=== PATIENT | female | born 1960 | race Two or more races ===

== ENCOUNTER → 2017-03-06 | Outpatient (CLI) | payer OTHER ==
[2016-03-16 20:26] VITALS: BP 148/73
--- NOTE | 2017-03-08 15:32 | MG ---
HISTORY: SCREENING . 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 Comparison: Multiple mammograms dating back to June 22, 2013. FINDINGS: Bilateral CC and MLO projections of the right and left breast were obtained. An additional XCCL view of the left breast was obtained. Heterogeneously dense fibroglandular tissue is seen to be present . Architectural distortion is seen of the left upper outer breast consistent with prior lumpectomy. No suspicious microcalcifications. No new masses.. No skin thickening or nipple retraction is appr eciated. No pathological lymphadenopathy can be identified. Benign-appearing calcifications scatte red throughout the right and left breasts are observed. IMPRESSION: NO RADIOGRAPHIC EVIDENCE OF MALIGNANCY. ACR CATEGORY: 2 - benign findings. FOLLOW-UP EXAM 1 YEAR. Diagnostic CAD was utilized and reviewed. * 0 (ZERO) - ASSESSMENT INCOMPLETE; ADDITIONAL IMAGING IS NEEDED. * 1/ (ONE) - NEGATIVE. * 2/II (TWO) - BENIGN FINDINGS. * 3/III (THREE) - PROBABLY BENIGN FINDING; SHORT INTERVAL FOLLOW-UP SUGGESTED. * 4/IV (FOUR) - SUSPICIOUS ABNORMALITY; BIOPSY SHOULD BE CONSIDERED. * 5/V - HIGHLY SUSPICIOUS OF MALIGNANCY; BIOPSY SHOULD BE PERFORMED. A NEGATIVE X-RAY REPORT SHOULD NOT DELAY BIOPSY IF A DOMINANT OR CLINICALLY SUSPICIOUS MASS IS PRESENT; 4 TO 8 PERCENT OF CANCERS ARE NOT IDENTIFIED BY X-RAY. A NEG ATIVE REPORT MAY REINFORCE THE CLINICAL IMPRESSION. ADENOSIS AND DENSE BREASTS MAY OBSCURE AN UNDER LYING NEOPLASM. Reported By:
== END ==
LOC: RAD 16:02
PROVIDERS: ATTEND Internal Medicine
DX: Z12.31 Encounter for screening mammogram for malignant neoplasm of breast (principal)
CPT/HCPCS: 77067

== ENCOUNTER 2017-04-04 17:14 | Emergency (ER) | payer SELFPAY ==
[2017-04-04 17:19] VITALS: BP 112/64; BMI 22.3
--- NOTE | 2017-04-04 19:36 | DR.HYPOGLY ---
HPI - Time Seen Time seen: 19:15 - PCP Primary Care Physician: LYN VARGAS - HPI Comment HPI Comment: Pt c/o 350 BS at home. She called her PCP, who trold her to go to the ER and have it checked out. Upon presentation to the ER , the patient's FSBS was 215. - Complaint Chief Complaint Doctors Comments: "Elevated BS" Chief Complaint:: PTS FAMILY STATES " HER SUGAR WAS HIGH AND WE CALLED HER DOCTOR AND SHE TOLD US TO COME TO THE HOSPITAL".. Self Treatment fo Chief Complaint: PT IS HAVING SOME DIZZINESS - Nurses notes reviewed Nurses Notes Review: Yes - Source History Provided: Patient, Family Member - Mode of Arrival Mode of Arrival: Ambulatory - Timing Onset of Chief Complaint: 04/04/17 PMH - PMH Past Medical History: No Past Medical History: Hypertension Past Surgical History: Yes Surgical History: Mastectomy Past Surgical History Comment: CANCEROUS CELLS LUMPECTOMY FROM LEFT - Family History History of Family Medical Conditions: No - Social History Does patient currently use any type of tobacco product: No Have you used tobacco products in the last 12 months: No Type of Tobacco Use: None Does any household member use tobacco: No Alcohol Use: None Do you use any recreational Drugs:: No Lives With: Family Lives Where: Home - infectious screening In the last 2 months have you had wt loss of >10#?: NO Have you had fever, night sweats or hemotysis?: No Have you traveled outside the country in the last 6 months?: No Isolation: Standard ROS - Review of Systems Constitutional: No Symptoms Reported Eyes: No Symptoms Reported ENTM: No Symptoms Reported Respiratoy: No Symptoms Reported Cardiovascular: No Symptoms Reported Gastrointestinal/Abdominal: No Symptoms Reported Genitourinary: No Symptoms Reported Neurological: No Symptoms Reported Musculoskeletal: No Symptoms Reported Integumentary: No Symptoms Reported Hematologic/Lymphatic: No Symptoms Reported Endocrine: No Symptoms Reported Psychiatric: No Symptoms Reported All Other Systems: Reviewed and Negative PE - Vital Signs Vitals: Pulse Rate 66 Respiratory Rate 18 Blood Pressure [Left Arm] 148/73 Blood Pressure 112/64 O2 Sat by Pulse Oximetry 98 - General Limitations: No Limitations General Appearance: Alert, In No Apparent Distress - ENT Throat Exam: Normal Inspection - Neck Neck Exam: Normal Inspection, Full ROM, Trachea Midline - Chest Chest Inspection: Normal Inspection, Symmetric Chest Wall Rise - Respiratory Respiratory Exam: Normal Lung Sounds Bilat Respiratory Exam: Bilateral Clear to Auscultation - Cardiovascular Cardiovascular Exam: Regular Rate, Normal Rhythm, Normal Heart Sounds - Abdominal Exam Abdominal Exam: Normal Inspection, Normal Bowel Sounds - Back Back Exam: Normal Inspection, Full ROM - Neurologic Neurological Exam: Alert, Oriented X3, CN II-XII Intact - Psychiatric Psychiatric Exam: Normal Affect, Normal Mood - Skin Skin Exam: Warm, Dry, Intact, Normal Color MDM - Differential diagnosis Differential diagnosis: CVA, Hypoglycemia Course - Reevaluation 1st: Resolved ROR - Labs Reviewed Laboratory Results Reviewed?: Yes - Diagnosis Discharge Problem: Hyperglycemia - Discharge Plan Disposition: HOME, SELF-CARE Condition: Stable - Follow ups/Referrals Follow ups/Referrals: KAREN GARCIA [Primary Care Provider] - 3 days - Instructions Instructions: Hyperglycemia, [id number], Hyperglycemia
== END 2017-04-04 19:55 | disposition home or self-care (01) ==
LOC: ER 17:25
DX: R73.9 Hyperglycemia, unspecified (principal)
CPT/HCPCS: 99281; 99282

== ENCOUNTER 2017-07-20 11:47 | Emergency (ER) | payer SELFPAY ==
[2017-07-20 11:53] VITALS: BMI 26.5
[2017-07-20] MEDS ORDERED: TORADOL 60 MG VIAL IM ONE (14:09)
[2017-07-20] MEDS ORDERED: TORADOL 60 MG VIAL ONE (14:17)
--- NOTE | 2017-07-20 14:58 | CT ---
CT CERVICAL SPINE WITHOUT CONTRAST CLINICAL HISTORY: 56-year-old female with neck pain. COMPARISON: None. TECHNIQUE: Multiple, noncontrasted axial CT images were obtained from the skull base to the cervical -thoracic junction and reformatted in the sagittal and coronal planes. FINDINGS: Straightening of the cervical lordosis as imaged. Mild multilevel disc degeneration and spo ndyloarthropathy without significant central canal or neural foraminal stenosis. No acute fracture or malalignment. The atlanto-axial and atlanto-occipital relationships are normal. The posterior elemen ts are normal in appearance and alignment. Significant atherosclerotic calcification of the carotid b ulbs with soft tissues of the neck otherwise unremarkable. Lung apices are clear. IMPRESSION: 1. No evidence of acute fracture or malalignment. 2. Mild multilevel disc degeneration and spondyloarthropathy without significant central canal or tim ral foraminal stenosis. Reported By:
[2017-07-20] MEDS ORDERED: PREDNISONE TAB 20 MG PO ONE ×2 (15:34→15:37)
--- NOTE | 2017-07-20 15:34 | DR.GENAD ---
HPI - PCP Primary Care Physician: LELAND Encinas [employer] - Complaint/Symptoms Chief Complaint Doctors Comments: Patient is complaining of neck pain in the back of her neck for the past 2-3 weeks getting worst when she holds down and move her neck back and forward. She denies numbness in her arms or legs. states she has been taking pain medicines but it comes back. She denies any recent trauma. Stats she is taking medicines for her blood pressure, diabetes and breast cancer. States the pain in her neck is 10 of 10. She denies tobacco or alcohol usage. Stats she has had her medicines today for pain. she denies nausea, vomiting, chest pain or SOB. Family states that she has been having problems with stress and has been worrying a lot and they are wondering if that is contributing to her pain. States she has been checking her glucose and it has been normal. Chief Complaint:: PT C/O NECK , THROAT, BACK OF NECK PAIN FOR 8 DAYS .. - Nurses notes reviewed Nurses Notes Review: Yes - Source History Provided: Patient - Mode of Arrival Mode of Arrival: Ambulatory - Timing Onset of Chief Complaint: 07/13/17 Came on: Gradually - Duration Duration: Intermittent How lon Duration: Weeks - Location Location: neck pain - Severity Severity: Moderate - Modifying Factors Worsens:: bending neck Improves:: nothing PMH - PMH Past Medical History: Yes Past Medical History: Diabetes, Hypertension Past Medical History Comment: BREAST CANCX ER , H Past Surgical History: Yes Surgical History: Mastectomy Past Surgical History Comment: LYMPH NODES REMOVED FROM LEFT ARM.. - Family History History of Family Medical Conditions: No - Social History Does patient currently use any type of tobacco product: No Type of Tobacco Use: None Does any household member use tobacco: No Alcohol Use: Rarely Do you use any recreational Drugs:: No Lives With: Family Lives Where: Home - infectious screening In the last 2 months have you had wt loss of >10#?: NO Have you had fever, night sweats or hemotysis?: No Have you traveled outside the country in the last 6 months?: No Isolation: Standard ROS - Review of Systems Constitutional: No Symptoms Reported. negative: See HPI, Chills, Diaphoresis, Fever, Malaise, Weakness, Irritable, Fatigue, Loss of Appetite, Other Eyes: No Symptoms Reported ENTM: No Symptoms Reported. negative: See HPI, Ear Pain, Ear Discharge, Pulling on Ears, Hearing Loss, Nose Pain, Nose Discharge, Epistaxis, Nose Congestion, Mouth Pain, Mouth Swelling, Loose Teeth, Drooling, Throat Pain, Throat Swelling, Ear Foreign Body Respiratoy: No Symptoms Reported. negative: See HPI, Productive Cough, Non- Productive Cough, Moist Cough, Dry Cough, Hacking Cough, Barking Cough, Brassy Cough, Orthopnea, Short of Breath, Stridor, Wheezing, Hemoptysis, Other Cardiovascular: No Symptoms Reported. negative: See HPI, Chest Pain, Edema, Palpitations, Syncope, Cyanosis, Skin Mottling, Other Gastrointestinal/Abdominal: No Symptoms Reported. negative: See HPI, Abdominal Pain, Constipation, Diarrhea, Nausea, Vomiting, Food Intolerance, Other Genitourinary: No Symptoms Reported Neurological: No Symptoms Reported, Anxiety, Emotional Problems. negative: See HPI, Depressed, Headache, Numbness, Paresthesia, Pre-existing Deficit, Seizure, Tingling, Tremors, Weakness, Dizziness, Problems Walking, Speech Problem, Other Musculoskeletal: No Symptoms Reported, Muscle Pain, Muscle Stiffness, Neck Integumentary: No Symptoms Reported. negative: See HPI, Change in Color, Change in Hair/Nails, Dryness, Lesions, Lumps, Rash, Itching, Wound, Bruises, Juandice, Other Hematologic/Lymphatic: No Symptoms Reported Endocrine: No Symptoms Reported Psychiatric: No Symptoms Reported PE - Vital Signs Vitals: Temperature 97.2 F Pulse Rate 93 Respiratory Rate 22 Blood Pressure [Left Arm] 168/75 Blood Pressure 195/96 O2 Sat by Pulse Oximetry 99 - General Limitations: No Limitations General Appearance: Alert, In No Apparent Distress - Head Head Exam: Normal Inspection, Atraumatic, Normocephalic - Eyes Eye exam: Normal Appearance, PERRL, EOMI. negative: Scleral Icterus, Conjunctival Injection, Nystagmus, Miosis, Mydrasis, Periorbital Swelling, Periorbital Tenderness, Other - ENT ENT Exam: Normal Exam, Normal Oropharynx, Normal External Ear Exam, Mucous Membranes Moist, TM's Normal Bilaterally External Ear Exam: Normal External Inspection TM/Canal Exam: Bilateral Normal Nose Exam: Normal Nose Exam Mouth Exam: Normal Inspection Throat Exam: Normal Inspection - Neck Neck Exam: Normal Inspection, Full ROM, Trachea Midline, Tenderness (paraspinal spasm; tenderness posterior neck) - Chest Chest Inspection: Normal Inspection, Symmetric Chest Wall Rise - Respiratory Respiratory Exam: Normal Lung Sounds Bilat. negative: Accessory Muscle Use, Chest Wall Tenderness, Prolonged Expiratory Phase, Respiratory Distress, Stridor , Other Respiratory Exam: Bilateral Clear to Auscultation - Cardiovascular Cardiovascular Exam: Regular Rate, Normal Rhythm, Normal Heart Sounds. negative : Bradycardia, Tachycardia, Irregular Rhythm, Systolic Murmur, Diastolic Murmur , Rubs, Gallop, Clicks, JVD, +S1, +S2, +S3, +S4, Other - Abdominal Exam Abdominal Exam: Normal Inspection, Normal Bowel Sounds, Soft Abdominal Tenderness: negative: RUQ, RLQ, LUQ, LLQ, Epigastrium, Suprapubic, Diffuse, Mild, Moderate, Severe, Other - Extremities Extremities Exam: Normal Inspection, Full ROM, Normal Capillary Refill. negative: Tenderness, Edema, Joint Swelling, Calf Tenderness, Other - Back Back Exam: Normal Inspection, Full ROM. negative: Tenderness, (R) CVA Tenderness, (L) CVA Tenderness, Muscle Spasm, Paraspinal Tenderness, Vertebral Tenderness, Rashes, (R) Sciatic Notch Tenderness, (L) Sciatic Notch Tendern, (R ) Straight Leg Raise, (L) Straight Leg Raise, Other - Neurologic Neurological Exam: Alert, Oriented X3, CN II-XII Intact, Normal Gait, Reflexes Normal - Psychiatric Psychiatric Exam: Normal Affect, Normal Mood - Skin Skin Exam: Warm, Dry, Intact, Normal Color. negative: Rash, Cyanosis, Diaphoresis, Erythema, Pallor, Mottled, Other ROR - Labs Reviewed Laboratory Results Reviewed?: Yes (all x-ray results reviewed and discussed with patient and family) - XRAY XRAY Interpreted by: Radiologist (Cervical spine: No evidence of acute fracture or malalignment. Mild multilevel disc degenerativion and spondyloarthroapathy) - Diagnosis Discharge Problem: Neck pain, acute, Cervical paraspinal muscle spasm, Degenerative disc disease, cervical, Anxiety, Hyperglycemia - Discharge Plan Disposition: 01 HOME, SELF-CARE Condition: Stable Prescriptions: Cyclobenzaprine HCl [FLEXERIL 10 MG *] 10 mg PO BID #20 tab Ibuprofen [MOTRIN TAB 800 MG *] 800 mg PO BID PRN #40 tab PRN Reason: Pain/Inflammation Prednisone [Prednisone Tab 20 mg] 20 mg PO QAM #7 tab - Follow ups/Referrals Follow ups/Referrals: JENNIFER HA [Primary Care Provider] - 3 days GAIL BRUCE [STAFF PHYSICIAN] - 3 days - Instructions Instructions: Cervical Radiculopathy, Musculoskeletal Pain, Acute Torticollis, Degenerative Disk Disease
[2017-07-20] MEDS ORDERED: FLEXERIL TAB 10 MG PO STA (15:35)
[2017-07-20] MEDS ORDERED: CATAPRES TAB 0.2 MG PO ONE (15:35)
[2017-07-20] MEDS ORDERED: FLEXERIL TAB 10 MG ONE (15:37)
[2017-07-20 15:44] VITALS: BP 177/74
== END 2017-07-20 15:53 | disposition home or self-care (01) ==
LOC: ER 11:56
DX: M54.2 Cervicalgia (principal); M62.838 Other muscle spasm; M51.36 Other intervertebral disc degeneration, lumbar region; F41.8 Other specified anxiety disorders; R73.9 Hyperglycemia, unspecified
CPT/HCPCS: 72125; 96372; 96374; 99282; J1885; J7506